=== PATIENT | female | born 2005 | race Caucasian/White ===

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

== ENCOUNTER 2023-10-04 00:16 | Emergency (ER) | payer OTHER ==
[2023-10-04 00:22] VITALS: BP 135/75; PULSE 78; RESP 20; TEMP 98.8; BMI 36.3
[2023-10-04] MEDS ORDERED: DEXAMETHASONE SOD PHOSPHATE 10 MG/1 ML VIAL ONE (00:49)
[2023-10-04] MEDS ORDERED: FAMOTIDINE 20 MG/50 ML IVPB 20 MG/50 ML MG IVPB ONE (00:49)
[2023-10-04] MEDS: SODIUM CHLORIDE 0.9% 500 ML INFUS.BAG IV ONE (00:53)
[2023-10-04] MEDS: DEXAMETHASONE SOD PHOSPHATE 10 MG/1 ML VIAL IVPUSH ONE (00:54)
[2023-10-04] MEDS: FAMOTIDINE 20 MG/50 ML IVPB 20 MG/50 ML MG IVPB ONE (01:13)
== END 2023-10-04 01:43 | disposition home or self-care (01) ==
LOC: JER 00:16
PROC: 3E033GC Introduction of Other Therapeutic Substance into Peripheral Vein, Percutaneous Approach (ICD-10-PCS; principal; 2023-10-04)
PROC: 3E033GC Introduction of Other Therapeutic Substance into Peripheral Vein, Percutaneous Approach (ICD-10-PCS; 2023-10-04)
PROC: 3E033GC Introduction of Other Therapeutic Substance into Peripheral Vein, Percutaneous Approach (ICD-10-PCS; 2023-10-04)
DX: L50.0 Allergic urticaria (principal); R20.2 Paresthesia of skin
CPT/HCPCS: 36415; 84702; 96365; 96375; 99284-25; J1100

== ENCOUNTER 2023-10-05 10:59 | Emergency (ER) | payer OTHER ==
[2023-10-05] MEDS ORDERED: predniSONE 20 MG TABLET (UD) ONE (11:06)
[2023-10-05] MEDS: predniSONE 20 MG TABLET (UD) PO ONE (11:16)
[2023-10-05 11:17] VITALS: BP 119/76; PULSE 75; RESP 18; TEMP 99; BMI 36.3
== END 2023-10-05 11:30 | disposition home or self-care (01) ==
LOC: FER 10:59
DX: L50.0 Allergic urticaria (principal)
CPT/HCPCS: 99283-25